=== PATIENT | male | born 1945 | race Caucasian/White ===

== ENCOUNTER 2021-09-12 06:55 | Outpatient (CLI) | payer MEDICARE, OTHER, SELFPAY ==
--- NOTE | 2021-09-12 08:26 | W.ANESCHARGE ---
Anesthesia Charges Start Date/Time Anesthesia Start Date: 09/12/21 Anesthesia Start Time: 07:50 Stop Date/Time Anesthesia Stop Date: 09/12/21 Anesthesia Stop Time: 08:15 Summary Emergency: No Extremes of Age: Over 70-CPT 56159
--- NOTE | 2021-09-12 09:04 | W.ANESCHARGE ---
Anesthesia Charges Start Date/Time Anesthesia Start Date: 09/12/21 Anesthesia Start Time: 07:50 Stop Date/Time Anesthesia Stop Date: 09/12/21 Anesthesia Stop Time: 08:15 Summary Emergency: No Extremes of Age: Over 70-CPT 80408
== END 2021-09-12 06:56 | disposition home or self-care (01) ==
LOC: OP CLINIC 06:58
PROVIDERS: PCP Family Medicine; Visit Provider Internal Medicine
PROC: 0DJD8ZZ Inspection of Lower Intestinal Tract, Via Natural or Artificial Opening Endoscopic (ICD-10-PCS; CPT 45378; principal; 2021-09-12 07:45)
DX: Z12.11 Encounter for screening for malignant neoplasm of colon (principal); K63.5 Polyp of colon; Z86.010 Personal history of colon polyps
CPT/HCPCS: 45380; 811; 88305; 99100; J2704

== ENCOUNTER 2021-10-21 10:56 | Outpatient (CLI) | payer MEDICARE, OTHER, SELFPAY ==
[2021-10-21 21:31] LABS: Albumin* 4.5 g/dL (3.3-5.0)
[2021-10-21 21:32] LABS: Chloride* 94 mmol/L (96-114); Potassium* 5.2 mmol/L (3.6-5.1); Sodium* 129 mmol/L (135-149)
[2021-10-21 21:34] LABS: Bilirubin Total* 0.7 mg/dL (0.1-1.5); Carbon Dioxide* 26 mmol/L (20-32); Cholesterol* 167 mg/dL (90-199); Creatinine* 0.8 mg/dL (0.5-1.5); Estimated Glomerular Filt Rate 93 ml/min
[2021-10-21 21:35] LABS: Alanine Aminotransferase* 23 U/L (4-50); Alkaline Phosphatase* 73 U/L (40-150); Aspartate Amino Transferase* 30 U/L (12-35); Blood Urea Nitrogen* 11 mg/dL (7-30); Calcium* 9.6 mg/dL (8.4-10.6); Glucose* 111 mg/dL (60-115); HDL Cholesterol* 70 mg/dL (>=40); LDL Cholesterol Calculated 73 mg/dL (<100); Total Protein* 7.3 g/dL (6.0-8.3); Triglycerides* 120 mg/dL (40-149)
== END 2021-10-21 10:57 | disposition home or self-care (01) ==
PROVIDERS: PCP Family Medicine; Visit Provider Family Medicine
DX: E78.00 Pure hypercholesterolemia, unspecified (principal); E87.1 Hypo-osmolality and hyponatremia; I10 Essential (primary) hypertension
CPT/HCPCS: 80053; 80061

== ENCOUNTER 2022-08-19 09:47 | Outpatient (RCR) | payer MEDICARE, OTHER, SELFPAY ==
--- NOTE | 2022-08-24 16:02 | PT.OPE ---
[facility] Outpatient Eval Start: 08/19/22 09:02 Freq: Status: Active Protocol: Document 08/19/22 10:00 HN (Rec: 08/19/22 11:25 HN [id number]) E-signed By Shelli Whyte DPT Physical Therapy Outpatient Evaluation Insurance Information Recert Due Date 11/16/22 Insurance Name Medicare B Insurance Information/Comments [employer] [facility] Medical Diagnosis M54. 2 Cervicalgia Treating Diagnosis M54. 2 Cervicalgia Referring MD Blade Arana Subjective Subjective Patient is a 76 year old male with chronic neck pain for past 5 years. Patient reports his avila pain began when he hit head very hard, was getting into a truck, jumped into roof and hit head. Patient reports symptoms are localized to neck. Patient describes the pain is dull/ sharp, snaps when he turns his head. Patient reports no real pain change with time of day. 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 PMH: HTN managed with medication, HLD managed with medication, left TKA, arthritis Social History: multistory, lives with Nola, work on car Pain Comments Current: 07/22 Best: 3-06/22 Worst: 09/21 Current Work Status Retired Occupation Retired Preferred Name [employer] Prec[employer] Therapy Limitations/Systems Review Not Limited Objective Other/Pertinent Objective Shoulder range of motion: Flexion/Abduction grossly intact Cervical range of motion: Flexion: 42 Extension: 20 Left sidebendin Right sidebendin Left rotation: 32 Right rotation: 34 Manual muscle testing: Shoulder flexion: 5/5 L , 5/5 R Shoulder extension: 5/5 L , 5 /5 R Shoulder abduction: 5/5 L , 5 /5 R Shoulder external rotation: 5/ 5 L , 5 /5 R Shoulder internal rotation: 5/ 5 L , 5/5 R Elbow flexion: 5/5 L , 5/5 R Elbow extension: 5/5 L , 5/5 R Cervical PA mobilizations: hypomobile and pain diffusely throughout cervical spine Functional Test Performed & Score Neck Disability Index score: 6 / 50 = 12.0 % Assessment Assessment/Impression Patient is a 76 year old with complaints of chronic neck pain. Patient demonstrates impaired cervical range of motion, strength, pain consistent with degenerrative changes. The impairments impact the patients ability to turn head with driving, look up/down, and participate in ADLs, IADLs and recreation. Patient will benefit from skilled physical therapy to address the impairments and activity limitations listed above. Prognostic factors include patient's negative expectations and motivation to complete PT. Patient reports he is pessimistic and does expect change. Extensive time of evaluation spent on education on benefit of PT, role of PT to help manage condition, and imaging vs function. Patient educated on initial exercises and next steps. Patient reports he will decide if he would like to continue plan of care. Primary Functional Limitations head with driving, sleep restfully, look up/down, and participate in ADLs, IADLs and recreation Plan of Care Rehabilitation Potential [facility] Physical Therapy Goals long term care social worker goals (11/11/22, 12 weeks) 1. Patient will report <5/10 at worst in order to demonstrate decreased pain and disability related to symptoms 2. Patient will demonstrate independence with HEP in order to manage symptoms independently at home 3. Patient will demonstrate 6% improvement in Neck Disability index in order to demonstrate decreased pain and disability related to neck pain 4. Patient will report <5/10 pain with turning head with driving to improve mobility and safety with driving. Coordination/Communication With Referral Source Treatment Plan/Direct Interventions Electrical Stimulation,Joint Mobilization,Manual Therapy, Neuromuscular Re-ed,Self-Care/ Home Management,Therapeutic Activities,Therapeutic Exercises,Traction (Mechanical ) Frequency/Duration 1x/week for up to 12 weels Patient Will Be Discharged From Therapy Completion of LTG(s),Skills Plateau,Independent w/HEP Discharge Plan Comments Case will be kept open for 1 month, if patient does not follow up, POC will be closed. Evaluation Billing Complexity Low Certification Information Initial Certification Date 08/19/22 Ending Certification Date 11/16/22 Provider Signature Shows Agreement With POC & Medical Necessity Physician Signature & Date Requested Please Sign/Date Here Physician Comment/Change : Physician NPI Number #
== END 2022-09-21 16:01 | disposition home or self-care (01) ==
PROVIDERS: PCP Family Medicine; Visit Provider Family Medicine
DX: M54.2 Cervicalgia (principal); Z51.89 Encounter for other specified aftercare
CPT/HCPCS: 97110; 97161

== ENCOUNTER 2023-07-29 11:01 | Outpatient (CLI) | payer MEDICARE, OTHER, SELFPAY | END 2023-07-29 11:02 | disposition home or self-care (01) | LOC: NFLDREF 07-30 12:39 | PROVIDERS: PCP Family Medicine; Referring Provider Family Medicine; Visit Provider Family Medicine | DX: Z00.00 Encounter for general adult medical examination without abnormal findings (principal); N40.1 Benign prostatic hyperplasia with lower urinary tract symptoms; E78.00 Pure hypercholesterolemia, unspecified; I10 Essential (primary) hypertension; R35.1 Nocturia; Z12.5 Encounter for screening for malignant neoplasm of prostate | CPT/HCPCS: 80053; 80061; G0103 ==

== ENCOUNTER 2023-08-19 08:09 | Outpatient (CLI) | payer MEDICARE, OTHER, SELFPAY ==
--- NOTE | 2023-08-19 09:50 | W.ANESCHARGE ---
Anesthesia Charges Start Date/Time Anesthesia Start Date: 08/19/23 Anesthesia Start Time: 09:25 Stop Date/Time Anesthesia Stop Date: 08/19/23 Anesthesia Stop Time: 09:45
--- NOTE | 2023-08-19 09:52 | W.ANESCHARGE ---
Anesthesia Charges Start Date/Time Anesthesia Start Date: 08/19/23 Anesthesia Start Time: 09:25 Stop Date/Time Anesthesia Stop Date: 08/19/23 Anesthesia Stop Time: 09:45 Summary Extremes of Age - Over 70 or under 1: MDA
== END 2023-08-19 08:10 | disposition home or self-care (01) ==
LOC: OP CLINIC 08:09
PROVIDERS: PCP Family Medicine; Visit Provider Surgery
DX: R13.10 Dysphagia, unspecified (principal); K44.9 Diaphragmatic hernia without obstruction or gangrene; K22.10 Ulcer of esophagus without bleeding
CPT/HCPCS: 00731; 43239; 88305; 99100; J2704

== ENCOUNTER 2024-08-11 10:30 | Outpatient (CLI) | payer MEDICARE, OTHER, SELFPAY | END 2024-08-11 10:31 | disposition home or self-care (01) | LOC: NFLDREF 08-16 00:40 | PROVIDERS: PCP Family Medicine; Referring Provider Family Medicine; Visit Provider Family Medicine | DX: I10 Essential (primary) hypertension (principal); E87.1 Hypo-osmolality and hyponatremia; E78.00 Pure hypercholesterolemia, unspecified; N40.1 Benign prostatic hyperplasia with lower urinary tract symptoms; R35.1 Nocturia; Z12.5 Encounter for screening for malignant neoplasm of prostate | CPT/HCPCS: 80053; 80061; G0103 ==